=== PATIENT | male | born 1975 | race Caucasian/White ===

== ENCOUNTER 2023-02-22 22:39 | Emergency (ER) | payer MEDICARE, SELFPAY ==
[2023-02-22 22:42] VITALS: BP 137/98; PULSE 106; RESP 16; TEMP 36.9; O2SAT 95; BMI 38.4
[2023-02-22 22:47] VITALS: BP 137/98; PULSE 100; RESP 20; O2SAT 95
[2023-02-22 22:54] VITALS: BMI 38.4
--- NOTE | 2023-02-22 22:55 | CT_ITS ---
PROCEDURE INFORMATION: Exam: CT Chest With Contrast; Diagnostic Exam date and time: 02/22/2023 11:32 PM Age: 48 years old Clinical indication: Other: RT rib pain TECHNIQUE: Imaging protocol: Diagnostic computed tomography of the chest with contrast. Radiation optimization: All CT scans at this facility use at least one of these dose optimization techniques: automated exposure control; mA and/or kV adjustment per patient size (includes targeted exams where dose is matched to clinical indication); or iterative reconstruction. Contrast material: ISOVUE; Contrast volume: 75 ml; Contrast route: IV; REPORTING DATA: Count of CT and Cardiac NM exams in prior 12 months: This patient has received 0 known CTs and 0 known cardiac nuclear medicine studies in the 12 months prior to the current study. COMPARISON: No relevant prior studies available. FINDINGS: Lungs: Dependent atelectasis noted bilaterally. Lungs are otherwise clear. Pleural spaces: Unremarkable. No pneumothorax. No pleural effusion. Heart: Unremarkable. No cardiomegaly. No pericardial effusion. Coronary arteries: Coronary artery calcifications are noted. Lymph nodes: Unremarkable. No enlarged lymph nodes. Vasculature: Unremarkable. No aortic aneurysm. Stomach and bowel: Gastric bypass changes are noted. Upper abdominal viscera otherwise unremarkable. Bones/joints: Old healed right lateral 6th rib fracture. No acute fracture evident. Old-appearing L1 compression fracture. Soft tissues: See Stomach and bowel finding. IMPRESSION: No acute abnormality. Nonemergent findings as above.
[2023-02-22 23:00] VITALS: BP 115/89; PULSE 106; RESP 18; O2SAT 92
[2023-02-22 23:01] LABS: Basophils % 0.3 % (0.1-2.0); Eosinophils # 0.2 K/mm3 (0.0-0.4); Eosinophils % 1.9 % (0.1-12.0); Hematocrit 44.6 % (42.0-52.0); Hemoglobin 14.6 g/dL (14.1-18.0); Mean Corpuscular HGB Conc 32.7 g/dL (31.8-35.4); Mean Corpuscular Hemoglobin 27.5 pg (27.0-31.2); Mean Platelet Volume 7.8 fl (7.4-10.4); Monocytes # 0.5 K/mm3 (0.1-1.0); Monocytes % 5.1 % (1.7-9.3); Neutrophils # 6.1 K/mm3 (1.8-7.8); Neutrophils % 61.8 % (37.0-80.0); Platelet Count 326 K/mm3 (142-424); Red Blood Count 5.32 M/mm3 (4.60-6.20); Red Cell Distribution Width 14.3 % (11.5-17.5); White Blood Count 9.9 K/mm3 (4.8-10.8)
[2023-02-22 23:06] LABS: Chloride 102 mmol/L (98-107); Sodium 138 mmol/L (136-145)
[2023-02-22 23:07] LABS: Potassium 4.4 mmoL/L (3.5-5.1)
[2023-02-22 23:09] LABS: Alanine Aminotransferase 24 U/L (12-78); Albumin Level 4.6 g/dl (3.5-5.0); Albumin/Globulin Ratio 1.5 (1.1-1.8); Alkaline Phosphatase 72 U/L (38-126); Anion Gap 18.4 mEq/L (5-15); Aspartate Amino Transferase 41 U/L (17-59); Bilirubin,Total 1.1 mg/dl (0.2-1.3); Blood Urea Nitrogen 8 mg/dl (9-20); Carbon Dioxide 22 mmol/L (22.0-30.0); Creatinine Clearance Estimated 166 mL/min (50-200); Estimated Glomerular Filt Rate 90 ml/min (>60); GFR (African American) 109 ML/MIN (>60); Globulin 3.1 g/dL (1.3-3.2); Total Protein,Serum 7.7 g/dl (6.3-8.2)
[2023-02-22 23:10] LABS: Calcium 9.3 mg/dl (8.4-10.2); Glucose 96 mg/dl (74-100)
--- NOTE | 2023-02-22 23:19 | CT_ITS ---
PROCEDURE INFORMATION: Exam: CT Abdomen And Pelvis With Contrast Exam date and time: 02/22/2023 11:32 PM Age: 48 years old Clinical indication: Abdominal pain TECHNIQUE: Imaging protocol: Computed tomography of the abdomen and pelvis with contrast. Radiation optimization: All CT scans at this facility use at least one of these dose optimization techniques: automated exposure control; mA and/or kV adjustment per patient size (includes targeted exams where dose is matched to clinical indication); or iterative reconstruction. Contrast material: ISOVUE; Contrast volume: 75 ml; Contrast route: IV; REPORTING DATA: Count of CT and Cardiac NM exams in prior 12 months: This patient has received 0 known CTs and 0 known cardiac nuclear medicine studies in the 12 months prior to the current study. COMPARISON: No relevant prior studies available. FINDINGS: Lungs: Lung bases are clear. Liver: Fatty liver changes are noted. No focal liver lesions seen. Gallbladder and bile ducts: Normal. No calcified stones. No ductal dilation. Pancreas: Normal. No ductal dilation. Spleen: Normal. No splenomegaly. Adrenal glands: Normal. No mass. Kidneys and ureters: Normal. No hydronephrosis. Stomach and bowel: Status post Abdoul-en-Y gastric bypass. GI tract structures otherwise unremarkable with no evident wall thickening allowing for incomplete distention. Appendix: Appendix is normal. No evidence of appendicitis. Intraperitoneal space: Unremarkable. No free air. No significant fluid collection. Vasculature: Unremarkable. No abdominal aortic aneurysm. Lymph nodes: Unremarkable. No enlarged lymph nodes. Urinary bladder: Unremarkable as visualized. Reproductive: Unremarkable as visualized. Bones/joints: Old mild superior endplate L1 compression fracture. No acute fracture. Soft tissues: Small fat containing umbilical hernia. IMPRESSION: No acute abnormalities of the abdomen and pelvis. Nonemergent findings as above.
[2023-02-23] VITALS: BP 129/80; PULSE 100; RESP 18; O2SAT 93
--- NOTE | 2023-02-23 00:55 | [facility].EDGENADL ---
Discharge Plan Disposition Patient Disposition: Home, Self-Care Prescriptions Prescriptions: New ketorolac 10 mg tablet 10 mg PO Q8H PRN (Reason: pain) 2 Days Qty: 10 0RF Referrals Follow up/Referrals: Mando Chamorro [Primary Care Provider] - See instructions Clinical Impressions Clinical Impression: Chest wall contusion, Contusion of rib on right side Instructions Patient Instructions: DI for Rib Contusion Discharge ED Provider: Marcy (ED)[place] [facility] Adult HPI General Chief complaint: PAIN Stated complaint: AO02/22 right side rib pain Time Seen by Provider: 02/23/23 00:00 Mode of Arrival: Ambulatory Source of Information: Patient, Spouse and Medical Record Limitations: No Limitations Description of Symptoms (Recalled from ER Triage Doc. by RN): pt states around 4pm was on a rope swing and dropped in water landing on rt side. pt c/o rt rib pain. pt has history of broken ribs History of Present Illness HPI narrative: dropped in water with rt rib pain this afternoon Onset (ago): hour(s) Location: chest Severity: moderate Consistency: intermittent Associated symptoms: denies other symptoms Related Data Previous Rx's Medication Instructions Recorded ketorolac 10 mg tablet 10 mg PO Q8H PRN pain 2 days #10 02/23/23 tabs Allergies Allergy/AdvReac Type Severity Reaction Status Date / Time No Known Allergies Allergy Verified 02/22/23 22:55 [facility] Disclaimer: The information contained in this section may have been updated after the patient was seen, as this information can be updated by other users. Social History Smoking Status: Current every day smoker alcohol intake: never current occupational status: employed Travel in the last 8 weeks: None ROS Obtained: Yes All systems reviewed & no additional complaints except as documented Physical Exam General General appearance: alert Head Head exam: normocephalic Eye Eye exam: Present PERRL and EOMI ENT ENT exam: Present mucous membranes moist Neck Neck exam: Present trachea midline Chest Chest inspection: Present tenderness and other (no sq air ) Respiratory Respiratory exam: Present normal lung sounds bilaterally; Absent respiratory distress Cardiovascular Cardiovascular exam: Present regular rate; Absent systolic murmur or rubs Abdominal Exam Abdominal exam: Present soft and tenderness; Absent guarding Abdominal tenderness: Present RUQ and mild Extremities Exam Extremities exam: Present full ROM Back Exam Back exam: Absent CVA tenderness (R), paraspinal tenderness or vertebral tenderness Neurological Exam Neurological exam: Present alert, oriented X3, CN II-XII intact and other (gcs=15); Absent motor sensory deficit Psychiatric Psychiatric exam: Present normal affect Skin Skin exam: Absent rash Medical Decision Making Medical Records Medical records reviewed: Yes I reviewed the patient's medical records. [place] Inquiry Pt receiving controlled substance: No Vital Signs: 02/22/23 22:42 02/22/23 22:47 02/22/23 23:00 Temperature 98.5 F Temperature Source Oral Pulse Rate 100 H 106 H Pulse Rate [Right] 106 H Respiratory Rate 16 20 18 Blood Pressure 137/98 H 115/89 Blood Pressure [Right Arm] 137/98 H Blood Pressure Mean 108 97 Blood Pressure Mean [Right Arm] 111 02 Sat by Pulse Oximetry 95 95 92 L 02/23/23 00:00 Temperature Temperature Source Pulse Rate 100 H Pulse Rate [Right] Respiratory Rate 18 Blood Pressure 129/80 Blood Pressure [Right Arm] Blood Pressure Mean 90 Blood Pressure Mean [Right Arm] 02 Sat by Pulse Oximetry 93 L Lab Data Lab results reviewed: Yes I reviewed the patient's lab results. Lab Results 02/22/23 22:53: WBC 9.9, RBC 5.32, Hgb 14.6, Hct 44.6, MCV 84.0, MCH 27.5, MCHC 32.7, RDW 14.3, Plt Count 326, MPV 7.8, Neut % (Auto) 61.8, Lymph % (Auto) 31.0, Blount % (Auto) 5.1, Eos % (Auto) 1.9, Baso % (Auto) 0.3, Neut # (Auto) 6.1, Lymph # (Auto) 3.0, Blount
[2023-02-23 01:13] VITALS: BP 121/70; PULSE 92; RESP 20; TEMP 36.7; O2SAT 97
== END 2023-02-23 01:19 | disposition home or self-care (01) ==
PROVIDERS: Emergency Provider Emergency Medicine; PCP Pediatrics
DX: S20.211A Contusion of right front wall of thorax, initial encounter (principal); W18.30XA Fall on same level, unspecified, initial encounter; F17.200 Nicotine dependence, unspecified, uncomplicated
CPT/HCPCS: 71260; 74177; 80053; 85025; 96361; 96374; 99284; 99285; J0131; Q9967